=== PATIENT | female | born 1945 | race Hispanic/Latino ===

== ENCOUNTER 2024-12-29 18:10 | Emergency (ER) | payer MEDICAID, OTHER ==
[2024-12-29] MEDS ORDERED: Ketorolac Tromethamine 30 MG (1 mL) VIAL ONE (19:41)
[2024-12-29 19:51] LABS: #Basophils 0.05 10x3/uL (0.0-0.2); #Eosinophils 0.10 10x3/uL (0.0-0.5); #Monocytes 0.60 10x3/uL (0.0-1.1); #Neutrophils 3.66 10x3/uL (1.5-8.4); %Basophils 0.8 % (0.0-2.0); %Eosinophils 1.6 % (0.0-6.0); %Lymphocytes 29.8 % (18.0-47.0); %Monocytes 9.5 % (0.0-10.0); %Neutrophils 58.0 % (40.0-75.0); Hematocrit 37.9 % (34.9-44.5); Hemoglobin 12.2 g/dL (12.0-15.5); Mean Corpuscular Hemoglobin 28.2 pg (27.0-33.0); Mean Corpuscular Volume 87.5 fL (81.6-98.3); Platelet Count 209 10x3/uL (150-450); Red Blood Cell (RBC) Count 4.33 10x6/uL (3.90-5.03); White Blood Cell (WBC) Count 6.31 10x3/uL (3.5-10.5)
[2024-12-29 20:11] LABS: ALT (SGPT) 15 U/L (Less than 34); AST (SGOT) 29 U/L (11-34); Albumin 3.4 g/dL (3.1-4.5); Alkaline Phosphatase 44 U/L (40-110); Anion Gap 11 mmol/L (10-20); BUN (Urea Nitrogen) 26 mg/dL (9.8-20.1); Bilirubin, Total 0.3 mg/dL (0.3-1.2); Calc. Creatinine Clearance 0 mL/min (70-130); Calcium 9.0 mg/dL (7.8-10.44); Carbon Dioxide 28 mmol/L (23-31); Chloride 104 mmol/L (98-107); Globulin 2.9 g/dL (2.4-3.5); Glucose 104 mg/dL (83-110); Lipase 51 U/L (8-78); Magnesium 1.6 mg/dL (1.6-2.6); Potassium 4.1 mmol/L (3.5-5.1); Sodium 139 mmol/L (136-145)
[2024-12-29 20:12] LABS: Troponin I Less than 0.010 ng/mL (< 0.028)
== END 2024-12-29 22:20 | disposition home or self-care (01) ==
LOC: CSHERS 18:10
DX: R53.1 Weakness (principal); R29.700 NIHSS score 0; I10 Essential (primary) hypertension; E11.9 Type 2 diabetes mellitus without complications; Z79.4 Long term (current) use of insulin
CPT/HCPCS: 36415; 36416; 71045; 80053; 83690; 83735; 83880; 84443; 84484; 85025; 87428; 93005; 96361; 96374; J1885